=== PATIENT | male | born 1940 | race Caucasian/White ===

== ENCOUNTER 2020-08-19 20:50 | Emergency (ER) | payer MEDICARE, OTHER ==
[2020-08-19] MEDS ORDERED: Vancomycin 1.5 GRAM/300 ML BAG ONE (21:20)
[2020-08-19] MEDS ORDERED: cloNIDine 0.1mg/24 Hour PATCH ONE (21:20)
[2020-08-19] MEDS ORDERED: Cefepime 2 GM VIAL ONE (21:20)
[2020-08-19] MEDS ORDERED: Dexamethasone 10 MG/ML VIAL ONE (21:20)
[2020-08-19] MEDS ORDERED: Sodium Chloride 0.9% 100 ML ONE (21:20)
[2020-08-19 21:25] LABS: INR-International Normal Ratio 1.6; Prothrombin Time 19.2 sec (12.0-14.7)
[2020-08-19 21:26] LABS: PTT 35.8 sec (22.9-36.1)
[2020-08-19] MEDS ORDERED: Dexamethasone 10 MG/ML VIAL SLOW IVP SCH (21:30)
[2020-08-19] MEDS ORDERED: Cefepime 2 GM in Sodium Chloride 0.9% 100 ML IVPB SCH (21:30)
--- NOTE | 2020-08-19 21:34 | RAD ---
Exam: Chest one view HISTORY:Altered mental status Comparison: 10/29/2019 FINDINGS: Cardiac silhouette:Cardiomegaly. Stable left-sided transvenous defibrillator. Aorta: Atherosclerosis and slight elongation Pulmonary vessels: Normal Costophrenic angles: Clear LUNGS: Scattered interstitial opacities throughout the lung parenchyma with a more focal consolidatio n in the left upper lobe. Pneumothorax: None Osseous abnormalities: None IMPRESSION: 1. Left upper lobe pneumonia. 2. Scattered interstitial opacities may represent interstitial edema due to congestive heart failure.
--- NOTE | 2020-08-19 21:38 | CT ---
Exam: Head CT without contrast HISTORY: Fall today. Loss of consciousness. Altered mental status. COMPARISON: 10/18/2016 FINDINGS: Hemorrhage: No intraparenchymal hemorrhage or extra-axial hematoma. Brain parenchyma: Cortical leggett-white matter differentiation is preserved. No mass effect or midline shift. Basilar cisterns are patent.Age-appropriate atrophy. There are chronic small vessel ischemic changes of the white matter. 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 Calvarium: Intact. Sinuses and mastoid air cells: Adequate aeration. IMPRESSION: 1. No intracranial posttraumatic sequelae 2. Chronic small vessel ischemic changes white matter. Age-appropriate atrophy.
[2020-08-19 21:39] LABS: ALT (SGPT) 64 U/L (8-55); AST (SGOT) 59 U/L (5-34); Albumin 3.5 g/dL (3.4-4.8); Alkaline Phosphatase 62 U/L (40-110); Anion Gap 17 mmol/L (10-20); BUN (Urea Nitrogen) 48 mg/dL (8.4-25.7); Bilirubin, Total 0.7 mg/dL (0.2-1.2); CK (CPK) 106 U/L (30-200); Calc. Creatinine Clearance 0 mL/min (70-130); Carbon Dioxide 23 mmol/L (23-31); Chloride 103 mmol/L (98-107); Globulin 3.6 g/dL (2.4-3.5); Glucose 169 mg/dL (83-110); Lipase 24 U/L (8-78); Potassium 4.1 mmol/L (3.5-5.1); Protein, Total 7.1 g/dL (5.8-8.1); Sodium 139 mmol/L (136-145)
[2020-08-19 22:02] LABS: CKMB 1.1 ng/mL (0-6.6)
[2020-08-19 22:12] LABS: #Monocytes 0.6 thou/uL (0.11-0.59); #Neutrophils 5.8 thou/uL (1.40-6.50); %Basophils 0.7 % (0.0-1.0); %Lymphocytes 7.4 % (21.0-51.0); %Monocytes 9.1 % (0.0-10.0); %Neutrophils 82.7 % (42.0-75.0); Hemoglobin 13.6 g/dL (14.0-18.0); Mean Corpuscular HGB CONC 32.6 g/dL (32.0-36.0); Mean Corpuscular Hemoglobin 31.4 pg (27.0-31.0); Mean Corpuscular Volume 96.3 fL (78.0-98.0); Mean Platelet Volume 12.4 fL (7.4-10.4); Platelet Count 141 thou/uL (130-400); RBC Distribution Width 11.7 % (11.5-14.5); Red Blood Cell (RBC) Count 4.33 mill/uL (4.70-6.10)
[2020-08-19 22:13] LABS: Anisocytosis MODERATE=16-30 cells (100X) (0-5/hpf)
[2020-08-19 22:14] LABS: Macrocytosis MODERATE=16-30 cells (100X) (0-5/hpf); Microcytosis SLIGHT = 6-15 cells (100X) (0-5/hpf)
[2020-08-19 22:34] LABS: Clarity Cloudy (Clear); Leukocyte Negative (Negative)
[2020-08-19 22:35] LABS: Bilirubin Negative (Negative); Blood, Urine Moderate (Negative); Glucose, Urine (Dipstick) Negative (Negative); Ketone, Urine Negative (Negative); Nitrite Negative (Negative); Protein, Urine (Dipstick) 100 mg/dL (Neg-Trace); Urobilinogen 0.2 mg/dL (Less than 2)
[2020-08-19 22:37] LABS: Bacteria/HPF 1+ HPF (None Seen); Squamous Epithelial 0-3 HPF (0-3); WBC/HPF 0-3 HPF (0-3)
[2020-08-19] MEDS ORDERED: Aspirin 300 MG Suppository ONE (22:48)
[2020-08-19] MEDS ORDERED: Sodium Chloride 0.9% 1,000 ML ONE (22:49)
[2020-08-20 00:11] LABS: SARS-CoV-2 NAA Rapid Test DETECTED (NotDetected)
== END 2020-08-19 23:07 | disposition short-term general hospital (02) ==
LOC: MADERS 20:50
DX: U07.1 COVID-19 (principal); J12.82 Pneumonia due to coronavirus disease 2019; I48.91 Unspecified atrial fibrillation; R41.0 Disorientation, unspecified; I10 Essential (primary) hypertension; Z79.899 Other long term (current) drug therapy
CPT/HCPCS: 0240U; 51701; 70450; 71045; 80053; 81003; 81015; 82550; 82553; 83605; 83690; 84484; 85025; 85610; 85730; 87040; 87086; 87804; 93005; 94760; 96365; 96367; 96375; J0692; J1100; J3370; J3490; J7050